=== PATIENT | male | born 1985 | race Caucasian/White ===

== ENCOUNTER 2017-03-29 21:14 | Emergency (ER) | payer OTHER ==
[2017-03-29 22:07] VITALS: BMI 22.1
[2017-03-29] MEDS ORDERED: Sodium Chloride 0.9% 1,000 ML IV STA (22:39)
--- NOTE | 2017-03-29 23:36 | ED PDOC ---
Arrival/HPI <Aubrey Clancy - Last Filed: 03/30/17 03:14> - General Historian: Patient - History of Present Illness Time/Duration: Other (2 days) Symptom Onset: Sudden Symptom Course: Worsening Severity Level: Mild Activities at Onset: Light <Agnes Shaw - Last Filed: 03/30/17 03:56> - General Chief Complaint: Abdominal Pain Time Seen by Provider: 03/29/17 22:00 - History of Present Illness Narrative History of Present Illness (Text): 03/29/17 23:31 Laurie Sheldon is a 31 year old male who presents to the emergency department complaining of epigastric pain and burning sensation across the upper abdomen and chest for past 2 days. States that symptoms worsened after eating today. Reports that symptoms are associated with shortness of breath and generalized fatigue. Also states that he developed a cough today. Describes symptoms as a reflux sensation and states he feels like " something stuck in throat." Patient informs that he has experienced these symptoms in the past usually after eating a meal; however, reports symptoms today were much severe than previous episodes. Patient recently traveled to [place] 3 weeks ago. Notes that he took some kind of medication for epigastric pain in the past, but has not taken it recently. Denies any fever, chills, headache, dizziness, vomiting, diarrhea, urinary symptoms, or any other complaints at this time. (Agnes Shaw) Past Medical History - Provider Review Nursing Documentation Reviewed: Yes - Travel History Have you recently traveled outside [place] w/in the past 3 mons?: Yes If Yes, travel location?: [place] - Tetanus Immunization Tetanus Immunization: Unknown - Psychiatric Hx Substance Use: No - Anesthesia Hx Anesthesia: No <Agnes Shaw - Last Filed: 03/30/17 03:56> Family/Social History - Physician Review Nursing Documentation Reviewed: Yes Family/Social History: No Known Family HX Smoking Status: Current Some Days Smoker Hx Alcohol Use: Yes Frequency of alcohol use: Socially Hx Substance Use: No <Agnes Shaw - Last Filed: 03/30/17 03:56> Allergies/Home Meds <Aubrey Clancy - Last Filed: 03/30/17 03:14> <Agnes Shaw - Last Filed: 03/30/17 03:56> Allergies/Adverse Reactions: Allergies No Known Allergies Allergy (Verified 03/29/17 22:07) Review of Systems - Physician Review All systems were reviewed & negative as marked: Yes - Review of Systems Constitutional: Fatigue. absent: Fevers Respiratory: SOB, Cough. absent: Sputum Cardiovascular: Chest Pain (burning sensation ) Gastrointestinal: Abdominal Pain (Epigastric pain ), Nausea. absent: Diarrhea, Vomiting Genitourinary Male: Normal Musculoskeletal: absent: Arthralgias, Back Pain, Neck Pain Neurological: Normal. absent: Headache, Dizziness Psychiatric: absent: Anxiety, Depression <Agnse Shaw - Last Filed: 03/30/17 03:56> Physical Exam Vital Signs Reviewed: Yes Temperature: Afebrile Blood Pressure: Normal Pulse: Regular Respiratory Rate: Normal Appearance: Positive for: Well-Appearing, Non-Toxic, Comfortable Pain Distress: None Mental Status: Positive for: Alert and Oriented X 3 - Systems Exam Head: Present: Atraumatic, Normocephalic Pupils: Present: PERRL Conjunctiva: Present: Normal Mouth: Present: Moist Mucous Membranes Pharnyx: Present: Normal. No: ERYTHEMA, EXUDATE, TONSILS ENLARGED Respiratory/Chest: Present: Clear to Auscultation, Good Air Exchange. No: Respiratory Distress, Accessory Muscle Use, Tender to Palpation Cardiovascular: Present: Regular Rate and Rhythm, Normal S1, S2. No: Murmurs Abdomen: Present: Tenderness (minimal Epigastric tenderness ), Normal Bowel Sounds. No: Distention, Peritoneal Signs, Rebound, Guarding Back: Present: Normal Inspection. No: CVA Tenderness, Midline Tenderness, Paraspinal Tenderness Upper Extremity: Present: Normal Inspection. No: Cyanosis, Edema Lower Extremity: Present: Normal Inspection. No: Edema Neurological: Present: GCS=15, Speech Normal Skin: Present: Warm, Dry, Normal Color. No: Rashes Psychiatric: Present: Alert, Oriented x 3 <Agnes Shaw - Last Filed: 03/30/17 03:56> Vital Signs Temp Pulse Resp BP Pulse Ox 03/29/17 21:33 98.1 F 65 18 126/79 100 Medical Decision Making <Aubrey Clancy - Last Filed: 03/30/17 03:14> <Agnes Shaw - Last Filed: 03/30/17 03:56> ED Course and Treatment: 03/30/17 02:18 Patient is nontoxic well appearing with stable vital signs presenting with epigastric abdominal pain with burning sensation and reflux. CBC within normal limits CMP wnl Lipase ELEVATED 429 trop; wnl dimer; wnl ekg; sinus bradycardia at 58 bpm normal axis normal intervals no ST elevations Urinalysis:wnl Pt given protonix IV. cxr; wnl Patient reassessment: pt non toxic well appearing; no distress. vitals stable. abdomen non tender. Patient offered admission to the hospital for pancreatitis. Patient states he is feeling much better and would prefer to go home. I discussed all findings and depth of the patient I discussed pancreatitis and after the patient and family members. I've advised taking medications as prescribed and following up with the GI doctor and primary care physician within the next 2 days. I've advised immediate return if symptoms worsen persist or if new concerning symptoms develop Patient verbalizes understanding of discharge instructions and need for immediate followup. all aspects of this case were discussed the attending of record. Impression: pancreatitis, abdominal pain Omeprazole; 1 tablet daily. increase fluids Avoid smoking and alcohol. Follow up with the GI doctor within the next 2 days. Follow up with the chlorine cell tender within the next 2 days. Follow up with primary care physician within the next 2 days Return immediately if symptoms worsen persist or if new symptoms develop: High fevers, increasing pain, vomiting, diarrhea or any other concerning symptoms develop (Agnes Shaw) - Lab Interpretations Lab Results: 03/29/17 23:50 03/29/17 23:50 Lab Results 03/30/17 02:21: Urine Color Yellow, Urine Appearance Clear, Urine pH 7.0, Ur Specific Bishop 1.015, Urine Protein Negative, Urine Glucose (UA) Negative, Urine Ketones Negative, Urine Blood Negative, Urine Nitrate Negative, Urine Bilirubin Negative, Urine Urobilinogen 0.2, Ur Leukocyte Esterase Negative 03/29/17 23:50: Lipase 429 H 03/29/17 23:50: D-Dimer, Quantitative 0.19 03/29/17 23:50: WBC 5.3, RBC 5.59, Hgb 14.1, Hct 42.1, MCV 75.3 L, MCH 25.2, MCHC 33.5, RDW 14.3, Plt Count 183, MPV 10.4, Gran % 49.4 L, Lymph % (Auto) 41.9 H, Kings % (Auto) 6.8 H, Eos % (Auto) 1.7, Baso % (Auto) 0.2, Gran # 2.62, Lymph # 2.2, Kings # 0.4, Eos # 0.1, Baso # 0.01 03/29/17 23:50: Sodium 141, Potassium 4.2, Chloride 102, Carbon Dioxide 27, Anion Gap 16, BUN 7, Creatinine 0.9, Est GFR ( Amer) > 60, Est GFR (Non- Af Amer) > 60, Random Glucose 92, Calcium 9.5, Total Bilirubin 0.5, AST 46, ALT 52, Alkaline Phosphatase 54, Lactate Dehydrogenase 382, Total Creatine Kinase 198, Troponin I < 0.01, Total Protein 7.8, Albumin 4.6, Globulin 3.2, Albumin/ Globulin Ratio 1.4 - RAD Interpretation Radiology Orders: 03/29/17 22:22 CHEST PORTABLE [RAD] Stat - Medication Orders Current Medication Orders: Discontinued Medications Sodium Chloride (Sodium Chloride 0.9%) 1,000 mls @ 999 mls/hr IV .Q1H1M STA Stop: 03/29/17 23:39 Last Admin: 03/29/17 23:59 Dose: 999 mls/hr Pantoprazole Sodium (Protonix Inj) 40 mg IVP STAT STA Stop: 03/29/17 22:40 Last Admin: 03/29/17 23:59 Dose: 40 mg - PA / MIG WELDER / Resident Statement /DO has reviewed & agrees with the documentation as recorded. <Aubrey Clancy - Last Filed: 03/30/17 03:14> Disposition/Present on Arrival <Aubrey Clancy - Last Filed: 03/30/17 03:14> - Present on Arrival Any Indicators Present on Arrival: No History of DVT/PE: No History of Uncontrolled Diabetes: No Urinary Catheter: No History of Decub. Ulcer: No History Surgical Site Infection Following: None - Disposition Have Diagnosis and Disposition been Completed?: Yes Disposition Time: 02:24 Patient Plan: Discharge <Agnes Shaw - Last Filed: 03/30/17 03:56> - Disposition Diagnosis: Pancreatitis, Abdominal pain Disposition: HOME/ ROUTINE Patient Problems: Current Active Problems Problem Status Onset Abdominal pain Acute Pancreatitis Acute Condition: GOOD Discharge Instructions (ExitCare): Pancreatitis (ED), Acute Abdominal Pain (ED) Additional Instructions: Tylenol #3; 1 tablet every 6 hours as needed for moderate to severe pain; may cause drowsiness. Omeprazole; 1 tablet daily. increase fluids Avoid smoking and alcohol. Follow up with the GI doctor within the next 2 days. Follow up with the chlorine cell tender within the next 2 days. Follow up with primary care physician within the next 2 days Return immediately if symptoms worsen persist or if new symptoms develop: High fevers, increasing pain, vomiting, diarrhea or any other concerning symptoms develop Prescriptions: Acetaminophen/Codeine [Tylenol/Codeine 300 MG/30 MG] 1 tab PO Q6H PRN #6 tab PRN Reason: Pain, Severe Omeprazole 20 mg PO DAILY #20 capsule.dr Referrals: Leander Cano MD [Primary Care Provider] - Follow up with primary Neville HIGGINBOTHAM,MD Shae [Medical Doctor] - Follow up with primary Gigi Parada MD [Staff Provider] - Follow up with primary Forms: [email or web address] (Filipino), WORK NOTE
[2017-03-30 00:10] LABS: BASO # 0.01 K/mm3 (0.0-2.0); BASO % 0.2 % (0.0-3.0); EOS # 0.1 (0.0-0.7); EOS % 1.7 % (1.5-5.0); GRAN # 2.62 (1.4-6.5); GRAN % 49.4 % (50.0-68.0); HEMOGLOBIN 14.1 g/dL (14.0-18.0); LYMPH # 2.2 (1.2-3.4); LYMPH % 41.9 % (22.0-35.0); MEAN CELL VOLUME 75.3 fl (80.0-105.0); MEAN CORPUSCULAR HEMOGLOBIN 25.2 pg (25.0-35.0); MEAN CORPUSCULAR HGB CONC 33.5 g/dl (31.0-37.0); MEAN PLATELET VOLUME 10.4 fl (7.0-11.0); MONO # 0.4 (0.1-0.6); MONO % 6.8 % (1.0-6.0); PLATELET COUNT 183 10^3/uL (120.0-450.0); RBC 5.59 10^6/uL (3.5-6.1); RED CELL DISTRIBUTION WIDTH 14.3 % (11.5-14.5); WHITE BLOOD COUNT 5.3 10^3/ul (4.5-11.0)
[2017-03-30 00:17] LABS: ALB/GLOB RATIO 1.4 (1.1-1.8); ALBUMIN 4.6 g/dL (3.0-4.8); ALT/SGPT 52 U/L (7-56); AST/SGOT 46 U/L (15-59); BLOOD UREA NITROGEN 7 mg/dL (7-21); CALCIUM 9.5 mg/dL (8.4-10.5); GFR AFRICAN-AMERICAN > 60; GFR NON-AFRICAN AMERICAN > 60
[2017-03-30 00:32] LABS: TROPONIN I < 0.01 ng/mL
[2017-03-30 03:04] LABS: URINE BILIRUBIN NEGATIVE (NEGATIVE); URINE BLOOD NEGATIVE (NEGATIVE); URINE GLUCOSE (UA) NEGATIVE (NEGATIVE); URINE LEUKOCYTE ESTERASE NEGATIVE Leu/uL (NEGATIVE); URINE NITRATE NEGATIVE (NEGATIVE); URINE PROTEIN NEGATIVE mg/dL (<30 mg/dL); URINE UROBILINOGEN 0.2 E.U./dL (<1 E.U./dL)
[2017-03-30 03:08] LABS: URINE APPEARANCE CLEAR (CLEAR); URINE COLOR YELLOW (YELLOW)
[2017-03-30 04:17] VITALS: BP 114/78; PULSE 76; RESP 16; TEMP 98; O2SAT 99
--- NOTE | 2017-03-30 09:16 | RAD ---
HISTORY: epigastric pain COMPARISON: No prior. FINDINGS: LUNGS: No active pulmonary disease. PLEURA: No significant pleural effusion identified, no pneumothorax apparent. CARDIOVASCULAR: Normal. OSSEOUS STRUCTURES: No significant abnormalities. VISUALIZED UPPER ABDOMEN: Normal. OTHER FINDINGS: None. IMPRESSION: No active disease.
--- NOTE | 2017-03-30 23:46 | CARD ---
APPROVED REPORT EKG Measurement Heart [id number] <Conclusion> Sinus bradycardia Otherwise normal ECG
== END 2017-03-30 03:20 | disposition home or self-care (01) ==
LOC: ED 21:14
DX: K85.90 Acute pancreatitis without necrosis or infection, unspecified (principal); R10.13 Epigastric pain
CPT/HCPCS: 71010; 80053; 81003; 82550; 83615; 83690; 84484; 85025; 85378; 93005; 96361; 96374; 99284; C9113; J7040

== ENCOUNTER 2018-10-16 10:05 | Emergency (ER) | payer MEDICAID, OTHER ==
[2018-10-16 10:10] VITALS: BMI 24.3
[2018-10-16 10:41] VITALS: RESP 18; TEMP 97.9
[2018-10-16] MEDS ORDERED: Sodium Chloride 0.9% 1,000 ML IV SCH (10:45)
[2018-10-16] MEDS ORDERED: Iohexol 350 MG/100 ML VIAL ONE (10:47)
--- NOTE | 2018-10-16 10:47 | ED PDOC ---
Arrival/HPI - General Chief Complaint: Chest Pain Time Seen by Provider: 10/16/18 10:10 Historian: Patient - History of Present Illness Narrative History of Present Illness (Text): 10/16/18 10:10 33 M with no significant hx who presents to the emergency department complaining of right sided chest pain, numbness and weakness of the right arm upon waking up this morning at 8:30. Patient notes chest pain radiates to back. Patient describes chest pain as heaviness. Patient states he has not had similar symptoms previously and was asymptomatic last night. Patient denies fevers, chills, headache, dizziness, shortness of breath, dyspnea on exertion, cough, abdominal pain, nausea, vomiting, diarrhea, neck pain, or any other complaint. Time/Duration: 1-3 hours (woke up at 8:30 this morning) Symptom Onset: Sudden Symptom Course: Unchanged Quality: Other (heaviness) Activities at Onset: Light Context: Home Past Medical History - Provider Review Nursing Documentation Reviewed: Yes - Tetanus Immunization Tetanus Immunization: Unknown - Cardiac Hx Cardiac Disorders: No - Pulmonary Hx Respiratory Disorders: No - Neurological Hx Neurological Disorder: No - HEENT Hx HEENT Disorder: No - Renal Hx Renal Disorder: No - Endocrine/Metabolic Hx Endocrine Disorders: No - Hematological/Oncological Hx Blood Disorders: No - Integumentary Hx Dermatological Disorder: No - Musculoskeletal/Rheumatological Hx Musculoskeletal Disorders: No - Gastrointestinal Hx Gastrointestinal Disorders: No - Genitourinary/Gynecological Hx Genitourinary Disorders: No - Psychiatric Hx Psychophysiologic Disorder: No Hx Substance Use: No - Anesthesia Hx Anesthesia: No Hx Anesthesia Reactions: No Hx Malignant Hyperthermia: No (UNKNOWN) Family/Social History - Physician Review Nursing Documentation Reviewed: Yes Family/Social History: Hypertension (father), Other (high blood sugar; mother) Smoking Status: Current Some Days Smoker Hx Alcohol Use: Yes Hx Substance Use: No Allergies/Home Meds Allergies/Adverse Reactions: Allergies No Known Allergies Allergy (Verified 03/29/17 22:07) Home Medications: Home Meds Medication Instructions Recorded Confirmed No Known Home Med 10/16/18 10/16/18 Review of Systems - Physician Review All systems were reviewed & negative as marked: Yes - Review of Systems Constitutional: absent: Fevers, Night Sweats Respiratory: absent: Cough Cardiovascular: Chest Pain (right side radiating to back). absent: BRYAN Gastrointestinal: absent: Abdominal Pain, Diarrhea, Nausea, Vomiting Musculoskeletal: Myalgias (right arm pain). absent: Neck Pain Neurological: Focal Weakness (right arm). absent: Headache, Dizziness Physical Exam - Physical Exam Narrative Physical Exam (Text): 10/16/18 10:10 Gen: VS reviewed, alert, well developed, well nourished, nontoxic, mild distress. ENT: normal pharynx. Eye: EOMI, PERRL. Neck: no JVD, supple, no adenopathy. CV: regular rate, regular rhythm, no rubs, no murmur, no gallops, S1, S2, pulses equal and strong. Pulm: no distress, clear to auscultation, no wheeze, no rhonchi, breath sounds equal, no rales. Abd: soft, nontender, no guarding, no rebound, no rigidity, normal bowel sounds. Ext: no edema. Skin: good color, no rash, no cyanosis. Psych: responds appropriately to questions, normal affect. Neuro: diminished sensation on right upper arm. and right lower face. 4/5 strength on right upper arm. Positive pronator drift RUE, oriented x 3. Vital Signs Reviewed: Yes Vital Signs Temp Pulse Resp BP Pulse Ox 10/16/18 10:23 97.9 F 71 18 111/70 100 Temperature: Afebrile Blood Pressure: Normal Pulse: Regular Respiratory Rate: Normal Appearance: Positive for: Well-Appearing, Non-Toxic, Comfortable Pain Distress: None Mental Status: Positive for: Alert and Oriented X 3 Medical Decision Making ED Course and Treatment: 10/16/18 10:35 Code Stroke 10/16/18 10:41: case discussed with dr. luna,neurology, agrees to follow through with stroke protocol. patient is not a candidate for thrombolysis. 10/16/18 10:43: case discussed with dr. caballero, radiologist, states that study to eval for CVA and dissection would be technically limited however the aortic could be visualized on CTA imaging. States that he will communicate this to the technician plant and maintenance to ensure the proper test is done. 10/16/18 11:43 case discussed with , recommends aspirin 81mg and plavix 300mg 10/16/18 12:[address] montoya to the hospitalist service. patient to be admitted for right upper extremity numbness and mild right upper extremity weakness, transient right lower face numbness. concern for acute cva was unremarkable. as per dr. luna, neurology, recommends cervical spine imaging. - RAD Interpretation Narrative RAD Interpretations (Text): 10/16/18 12:57 Chest X-Ray shows: IMPRESSION: No interval acute cardiopulmonary disease appreciated. 10/16/18 10:[address] without contrast shows: IMPRESSION: Unremarkable, unenhanced CT of the Head. 10/16/18 11:36 Head/Neck CTA shows: IMPRESSION: Unremarkable CT Angiography of the Brain and Neck. Incidentally, the aortic arch appears intact without evidence of dissection or aneurysm. Artist Representative: Radiologist - EKG Interpretation EKG Interpretation (Text): 10/16/18 11:00 10:20: ekg my read: nsr at 77 bpm, nml qrs, nml axis, no acute sttw abn Interpreted by ED Physician: Yes NIHSS Scale (Homer) Time Performed: 11:03 - How Severe is the Stoke Baseline Level of Consciousness: 0=Alert LOC to Questions: 0=Both comments correct LOC to commands: 0=Obeys both correctly Best Gaze: 0=Normal Visual: 0=No visual loss Facial: 0=Normal Motor Arm - Left: 0=No drift Motor Arm - Right: 1=Drift noted before 10 sec Motor Leg - Left: 0=No drift Motor Leg - Right: 0=No drift Limb Ataxia: 0=Absent Sensory: 1=Mild to moderate loss Best Language: 0=No aphasia Dysarthia: 0=Normal articulation Extinction & Inattention (Neglect): 0=Normal, no object Score: 2 Risk Level: Minor Stroke Risk rTPA Inclusion/Exclusion - Refusal of Treatment Patient Refused Treatment: No - Inclusion Criteria for Altepase Patient is 18 years or Older: Yes The Clinical Diagnosis of Ischemic Stroke That is Causing a Potentially Disabling Neurological Deficit: Yes Time of Onset is Well Established to be Less Than 270 Minute Before Treatment Would Begin: No Risk/Benefit Discussed With Patient/Family Member Present: Yes - Warning to TPA With Conditions Condition: Stroke Serevity Too Mild - Scribe Statement The provider has reviewed the documentation as recorded by the Scribalton Casanova All medical record entries made by the Scribe were at my direction and personally dictated by me. I have reviewed the chart and agree that the record accurately reflects my personal performance of the history, physical exam, medical decision making, and the department course for this patient. I have also personally directed, reviewed, and agree with the discharge instructions and disposition. Disposition/Present on Arrival - Present on Arrival Any Indicators Present on Arrival: No History of DVT/PE: No History of Uncontrolled Diabetes: No Urinary Catheter: No History of Decub. Ulcer: No History Surgical Site Infection Following: None - Disposition Have Diagnosis and Disposition been Completed?: Yes Diagnosis: Weakness, Numbness Disposition: HOSPITALIZED Disposition Time: 12:53 Patient Plan: Observation Condition: STABLE Discharge Instructions (ExitCare): Generalized Weakness Referrals: Leander Cano MD [Primary Care Provider] - Follow up with primary
[2018-10-16 10:51] LABS: BASO # 0.02 K/mm3 (0.0-2.0); BASO % 0.3 % (0.0-3.0); EOS # 0.1 (0.0-0.7); EOS % 2.3 % (1.5-5.0); HEMOGLOBIN 14.4 g/dL (14.0-18.0); LYMPH # 2.1 (1.2-3.4); LYMPH % 34.7 % (22.0-35.0); MEAN PLATELET VOLUME 10.2 fl (7.0-11.0); MONO # 0.7 (0.1-0.6); RBC 5.75 10^6/uL (3.5-6.1); RED CELL DISTRIBUTION WIDTH 14.4 % (11.5-14.5)
--- NOTE | 2018-10-16 11:00 | CT ---
Date of service: 10/16/2018 PROCEDURE: CT HEAD WITHOUT CONTRAST. HISTORY: Code Stroke COMPARISON: None available. TECHNIQUE: Axial computed tomography images were obtained through the head/brain without intravenous contrast. Radiation dose: Total exam DLP = 890.64 mGy-cm. This CT exam was performed using one or more of the following dose reduction techniques: Automated exposure control, adjustment of the mA and/or kV according to patient size, and/or use of iterative reconstruction technique. FINDINGS: HEMORRHAGE: No intracranial hemorrhage. BRAIN: Normal greer-white matter differentiation and density are appreciated throughout the cerebrum and cerebellum with the brainstem appearing unremarkable as well. There is no mass effect. There is no suspicious extra-axial fluid collection and the midline brain anatomy appears diffusely unremarkable. VENTRICLES: Unremarkable. No hydrocephalus. CALVARIUM: Unremarkable. PARANASAL SINUSES: Unremarkable as visualized. No significant inflammatory changes. MASTOID AIR CELLS: Unremarkable as visualized. No inflammatory changes. OTHER FINDINGS: None. IMPRESSION: Unremarkable, unenhanced CT of the Head. Findings discussed with Dr. Greene with written down read back verification 10/16/2018, 10:54 a.m..
[2018-10-16 11:02] LABS: ALB/GLOB RATIO 1.5 (1.1-1.8); ALBUMIN 4.7 g/dL (3.0-4.8); ALT/SGPT 26 U/L (7-56); AST/SGOT 29 U/L (17-59); BLOOD UREA NITROGEN 11 mg/dL (7-21); GFR NON-AFRICAN AMERICAN > 60; HDL CHOLESTEROL 36 mg/dL (29-60)
[2018-10-16 11:05] LABS: INR 1.06; PARTIAL THROMBOPLASTIN TIME 31.3 Seconds (26.9-38.3)
[2018-10-16 11:12] LABS: LDL CHOLESTEROL 112 mg/dL (0-129); TROPONIN I < 0.01 ng/mL
--- NOTE | 2018-10-16 11:39 | CT ---
Date of service: 10/16/2018 PROCEDURE: CT Angiography of the Brain and Neck. HISTORY: CVA COMPARISON: None available. TECHNIQUE: CT angiography of the head and neck was performed following intravenous contrast administration. Coronal and sagittal maximum intensity projection reformatted images were generated. Contrast Dose: Omnipaque 350, 100 cc Radiation dose: Total exam DLP = 586.72 mGy-cm. This CT exam was performed using one or more of the following dose reduction techniques: Automated exposure control, adjustment of the mA and/or kV according to patient size, and/or use of iterative reconstruction technique. FINDINGS: INTERNAL CEREBRAL ARTERIES: Unremarkable. The skull base, petrous, cavernous and supraclinoid segments are bilaterally widely patent. ANTERIOR CEREBRAL ARTERIES: Unremarkable. A1 and A2 segments are widely patent. Smaller distal branches unremarkable, as visualized. MIDDLE CEREBRAL ARTERIES: Unremarkable. M1 and M2 segments are widely patent. Perisylvian branches grossly symmetric. POSTERIOR CIRCULATION: Basilar Artery: Unremarkable. Distal Vertebral Arteries: Ectatic distal vertebral arteries are identified which are codominant nevertheless and otherwise unremarkable. Posterior Cerebral Arteries: Unremarkable. Posterior Inferior Cerebellar Arteries: Unremarkable. NECK CTA: Common Carotid arteries: The bilateral common carotid appear widely patent from their origins to their bifurcations with no significant stenosis appreciated. No evidence to suggest common carotid artery dissection. Internal Carotid arteries: No significant stenosis is appreciated throughout the cervical internal carotid artery segments bilaterally and there is no evidence of dissection either. External Carotid arteries: Appear unremarkable bilaterally. Vertebral arteries: The bilateral vertebral arteries appear normal in caliber from their origins to their distal cervical segments. No significant stenosis or definite pattern of dissection. The aortic arch appears intact without evidence of dissection or aneurysm. Three vessel arch is identified. ANEURYSM/ VASCULAR MALFORMATIONS: None. OTHER FINDINGS: None. IMPRESSION: Unremarkable CT Angiography of the Brain and Neck. Incidentally, the aortic arch appears intact without evidence of dissection or aneurysm.
--- NOTE | 2018-10-16 13:00 | RAD ---
Date of service: 10/16/2018 HISTORY: Code Stroke COMPARISON: Portable chest 03/29/2017. FINDINGS: LUNGS: No active pulmonary disease. PLEURA: No significant pleural effusion identified, no pneumothorax apparent. CARDIOVASCULAR: No aortic atherosclerotic calcification present. Normal cardiac size. No pulmonary vascular congestion. OSSEOUS STRUCTURES: No significant abnormalities. VISUALIZED UPPER ABDOMEN: Normal. OTHER FINDINGS: None. IMPRESSION: No interval acute cardiopulmonary disease appreciated.
--- NOTE | 2018-10-16 13:57 | CP.PCM.CON ---
History of Present Illness - History of Present Illness History of Present Illness: Neurology Consultation Note: Consult requested by Dr. Greene Mr. Sheldon is a 33-year-old man with no significant past medical history, who woke up this morning complaining of right shoulder, back, arm and neck pain along with numbness. Initial NIHSS was 1. CT scan of the head did not show any acute findings. He was last normal last night and was not a candidate for IV tPA. There was initially concern for aortic dissection due to the chest pain radiating to the back and a CTA of the head/neck/aortic arch was done and did no t determine there was a dissection. Cardiology was also consulted. Review of Systems - Constitutional Constitutional: As Per HPI - EENT Eyes: absent: As Per HPI, Blind Spots, Blurred Vision, Change in Vision, Decreased Night Vision, Diplopia, Discharge, Dry Eye, Exophthalmos, Floaters, Irritation, Itchy Eyes, Loss of Peripheral Vision, Pain, Photophobia, Requires Corrective Lenses, Sees Flashes, Spots in Vision, Tunnel Vision, Other Visual Disturbances, Loss of Vision, Other Ears: absent: As Per HPI, Decreased Hearing, Ear Discharge, Ear Pain, Tinnitus, Abnormal Hearing, Disequilibrium, Dizziness, Other Nose/Mouth/Throat: absent: As Per HPI, Epistaxis, Nasal Congestion, Nasal Discharge, Nasal Obstruction, Nasal Trauma, Nose Pain, Post Nasal Drip, Sinus Pain, Sinus Pressure, Bleeding Gums, Change in Voice, Dental Pain, Dry Mouth, Dysphagia, Halitosis, Hoarsness, Lip Swelling, Mouth Lesions, Mouth Pain, Odynophagia, Sore Throat, Throat Swelling, Tongue Swelling, Facial Pain, Neck Pain, Neck Mass, Other - Cardiovascular Cardiovascular: As Per HPI - Respiratory Respiratory: absent: As Per HPI, Cough, Dyspnea, Hemoptysis, Dyspnea on Exertion, Wheezing, Snoring, Stridor, Pain on Inspiration, Chest Congestion, Excessive Mucous Production, Change in Mucous Color, Pain with Coughing, Other - Gastrointestinal Gastrointestinal: absent: As Per HPI, Abdominal Pain, Belching, Bloating, Change in Bowel Habits, Change in Stool Character, Coffee Ground Emesis, Constipation, Cramping, Diarrhea, Dyspepsia, Dysphagia, Early Satiety, Excessive Flatus, Fecal Incontinence, Heartburn, Hematemesis, Hematochezia, Loose Stools, Melena, Nausea, Odynophagia, Temesmus, Vomiting, Other - Musculoskeletal Musculoskeletal: absent: As Per HPI, Abnormal Gait, Arthralgias, Atrophy, Back Pain, Deformity, Joint Swelling, Limited Range of Motion, Loss of Height, Muscle Cramps, Muscle Weakness, Myalgias, Neck Pain, Numbness, Radiating Pain into Limb, Stiffness, Tingling, Other - Integumentary Integumentary: absent: As Per HPI, Acne, Alopecia, Bleeding Lesions, Change in Hair, Change in Nails, Change in Pigmentation, Changing Lesions, Dry Skin, Eryth ruddy, Furuncle, Hirsutism, Lesions, New Lesions, Non-Healing Lesions, Photosensitivity, Pruritus, Rash, Skin Pain, Skin Ulcer, Sores, Striae, Swelling, Unusual Bruising, Wounds, Jaundice, Other - Neurological Neurological: As Per HPI - Psychiatric Psychiatric: absent: As Per HPI, Abnormal Sleep Pattern, Anhedonia, Anxiety, Auditory Hallucinations, Behavioral Changes, Change in Appetite, Change in Libido, Confusion, Depression, Difficulty Concentrating, Hallucinations, Homicidal Ideation, Hopelessness, Irritability, Memory Loss, Mood Swings, Panic Attacks, Paranoia, Suicidal Ideation, Visual Hallucinations, Tactile H allucinations, Other - Endocrine Endocrine: absent: As Per HPI, Change in Body Appearance, Change in Libido, Cold Intolorance, Deepening of Voice, Excessive Sweating, Fatigue, Flushing, Heat Intolorance, Increase in Ring/Shoe/Hat Size, Palpitations, Polydipsia, Polyphagia, Polyuria, Other - Hematologic/Lymphatic Hematologic: absent: As Per HPI, Easy Bleeding, Easy Bruising, Lymphadenopathy, Other Past Patient History - Tetanus Immunizations Tetanus Immunization: Unknown - Past Medical History & Family History Past Medical History?: Yes - Past Social History Smoking Status: Current Some Days Smoker - CARDIAC Hx Cardiac Disorders: No - PULMONARY Hx Respiratory Disorders: No - NEUROLOGICAL Hx Neurological Disorder: No - HEENT Hx HEENT Problems: No - RENAL Hx Chronic Kidney Disease: No - ENDOCRINE/METABOLIC Hx Endocrine Disorders: No - HEMATOLOGICAL/ONCOLOGICAL Hx Blood Disorders: No - INTEGUMENTARY Hx Dermatological Problems: No - MUSCULOSKELETAL/RHEUMATOLOGICAL Hx Musculoskeletal Disorders: No - GASTROINTESTINAL Hx Gastrointestinal Disorders: No - GENITOURINARY/GYNECOLOGICAL Hx Genitourinary Disorders: No - PSYCHIATRIC Hx Psychophysiologic Disorder: No Hx Substance Use: No - SURGICAL HISTORY Hx Surgeries: No - ANESTHESIA Hx Anesthesia: No Hx Anesthesia Reactions: No Hx Malignant Hyperthermia: No (UNKNOWN) Meds Allergies/Adverse Reactions: Allergies Allergy/AdvReac Type Severity Reaction Status Date / Time No Known Allergies Allergy Verified 03/29/17 22:07 - Medications Medications: Current Medications Sodium Chloride (Sodium Chloride 0.9%) 1,000 mls @ 100 mls/hr IV .Q10H JAHAIRA Last Admin: 10/16/18 11:34 Dose: 100 mls/hr Physical Exam - Constitutional Appears: Well - Head Exam Head Exam: ATRAUMATIC, NORMAL INSPECTION, NORMOCEPHALIC - Eye Exam Eye Exam: EOMI, Normal appearance, PERRL Pupil Exam: NORMAL ACCOMODATION, PERRL - ENT Exam ENT Exam: Mucous Membranes Moist, Normal Exam - Neck Exam Neck exam: Positive for: Normal Inspection - Respiratory Exam Respiratory Exam: Clear to Auscultation Bilateral, NORMAL BREATHING PATTERN - Cardiovascular Exam Cardiovascular Exam: REGULAR RHYTHM, +S1, +S2 - GI/Abdominal Exam GI & Abdominal Exam: Normal Bowel Sounds, Soft. absent: Tenderness - Extremities Exam Extremities exam: Positive for: normal inspection - Back Exam Back exam: NORMAL INSPECTION - Neurological Exam Neurological exam: Alert, CN II-XII Intact, Normal Gait, Oriented x3, Reflexes Normal Additional comments: Strength was symmetrical throughout and full. There was decreased sensation to touch of the right arm as compared with the left. Otherwise, normal exam and NIHSS was 1. Neck tenderness and some back tenderness to touch at C4/5. - Psychiatric Exam Psychiatric exam: Normal Affect, Normal Mood - Skin Skin Exam: Dry, Intact, Normal Color, Warm Results - Vital Signs Recent Vital Signs: Last Vital Signs Temp 97.9 F 10/16/18 10:23 Pulse 76 10/16/18 12:44 Resp 18 10/16/18 12:44 BP 127/79 10/16/18 12:44 Pulse Ox 97 10/16/18 12:44 - Labs Result Diagrams: 10/16/18 10:40 10/16/18 10:40 Labs: Laboratory Results - last 24 hr 10/16/18 10/16/18 10/16/18 10:38 10:40 10:40 WBC 6.0 RBC 5.75 Hgb 14.4 Hct 43.7 MCV 76.0 L MCH 25.0 MCHC 33.0 RDW 14.4 Plt Count 183 MPV 10.2 Neut % (Auto) 51.7 Lymph % (Auto) 34.7 [place] % (Auto) 11.0 H Eos % (Auto) 2.3 Baso % (Auto) 0.3 Lymph # (Auto) 2.1 [place] # (Auto) 0.7 H Eos # (Auto) 0.1 Baso # (Auto) 0.02 Absolute Neuts (auto) 3.10 PT 12.0 INR 1.06 APTT 31.3 Sodium Potassium Chloride Carbon Dioxide Anion Gap BUN Creatinine Est GFR ( Amer) Est GFR (Non-Af Amer) POC Glucose (mg/dL) 103 Random Glucose Calcium Total Bilirubin AST ALT Alkaline Phosphatase Troponin I Total Protein Albumin Globulin Albumin/Globulin Ratio Triglycerides Cholesterol LDL Cholesterol Direct HDL Cholesterol Blood Type Blood Type Confirm Antibody Screen BBK History Checked 10/16/18 10/16/18 10/16/18 10:40 10:40 11:16 WBC RBC Hgb Hct MCV MCH MCHC RDW Plt Count MPV Neut % (Auto) Lymph % (Auto) [place] % (Auto) Eos % (Auto) Baso % (Auto) Lymph # (Auto) [place] # (Auto) Eos # (Auto) Baso # (Auto) Absolute Neuts (auto) PT INR APTT Sodium 139 Potassium 3.9 Chloride 102 Carbon Dioxide 29 Anion Gap 12 BUN 11 Creatinine 0.9 Est GFR ( Amer) > 60 Est GFR (Non-Af Amer) > 60 POC Glucose (mg/dL) Random Glucose 90 Calcium 10.0 Total Bilirubin 0.5 AST 29 ALT 26 Alkaline Phosphatase 54 Troponin I < 0.01 Total Protein 7.8 Albumin 4.7 Globulin 3.1 Albumin/Globulin Ratio 1.5 Triglycerides 280 H Cholesterol 191 LDL Cholesterol Direct 112 HDL Cholesterol 36 Blood Type B POSITIVE Blood Type Confirm B POSITIVE Antibody Screen Negative BBK History Checked No verified bt Assessment & Plan (1) Numbness Assessment and Plan: This is unlikely to be of a central source; however, due to the localization of the symptoms, an acute stroke should be ruled out with an MRI of the brain without contrast. I recommend also extending the MRI the cervical spine. The patient should be given Plavix 300 mg and aspirin 81 mg as a precaution since he is presenting with focal neurological deficits and although has no real risk factors for stroke, until this is ruled out with the MRI, we will continue the stroke protocol. Fluids with NS at 100 mL/hr, permissive HTN (only treat BP higher than 220/110 mm Hg for the next 24-36 hours), PT/OT eval. Check lipid panel, HbA1c, b12, folate, TSH and vitamin D levels. Thank you for this consultation. Status: Acute
[2018-10-16 14:02] VITALS: BP 121/74; PULSE 93; O2SAT 98
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
--- NOTE | 2018-10-16 18:42 | CARD ---
APPROVED REPORT Date of service: 10/16/2018 EKG Measurement Heart [id number] <Conclusion> Normal sinus rhythm with sinus arrhythmia Normal ECG
== END 2018-10-16 14:09 | disposition left against medical advice (07) ==
LOC: ED 10:05 → UNDOADMOB 12:53 → ERH 12:53
DX: R53.1 Weakness (principal); R20.0 Anesthesia of skin
CPT/HCPCS: 70450; 70496; 70498; 71045; 80053; 80061; 82948; 83036; 84484; 85025; 85610; 85730; 86850; 86900; 93005; 99284; J7030; Q9967